=== PATIENT | female | born 1995 | race Caucasian/White ===

== ENCOUNTER 2018-03-09 19:59 | Emergency (ER) | payer MEDICAID ==
[~2018-03-09] VITALS: Ht 170.2 cm; Wt 56.0 kg
[~2018-03-09 19:59] MED LIST: ACET-1008 PO; IBUP-1986 PO; LEVO750T21 PO
[2018-03-09 20:17] VITALS: BP 108/69
[2018-03-09] MEDS ORDERED: amoxicillin 250mg capsule PO ONE (21:55)
[2018-03-09] MEDS ORDERED: acetaminophen 325mg tablet PO ONE (21:55)
[2018-03-09] MEDS ORDERED: ondansetron 4mg rapidly disintigrating tab PO ONE (21:55)
[2018-03-09] MEDS ORDERED: IBUP-1984 PO (22:05)
[2018-03-09] MEDS ORDERED: ACET-812 PO (22:05)
[2018-03-09] MEDS ORDERED: AMOX500C2 PO (22:05)
[2018-03-09] MEDS ORDERED: HYDROcodone/acetaminophen 5mg/325mg tablet PO ONE (22:20)
[2018-03-09] MEDS ORDERED: ibuprofen tablet 400 MG TABLET PO ONE (22:20)
== END 2018-03-09 22:48 | disposition home or self-care (01) ==
LOC: ER 20:00
DX: K08.89 Other specified disorders of teeth and supporting structures (principal); Z79.2 Long term (current) use of antibiotics; Z79.1 Long term (current) use of non-steroidal anti-inflammatories (NSAID)
CPT/HCPCS: 64400; 99284